=== PATIENT | male | born 1965 | race Caucasian/White ===

== ENCOUNTER 2016-03-07 21:19 | Emergency (ER) | payer OTHER ==
[~2016-03-07] VITALS: Ht 172.7 cm; Wt 96.5 kg
[2016-03-07 21:24] VITALS: BP 162/71; PULSE 144; RESP 24; O2SAT 99
[2016-03-07] MEDS ORDERED: 0.9% Sodium Chloride 1,000 ML IV ONE ×3 (21:37→23:45)
--- NOTE | 2016-03-07 21:37 | ED.REPORT ---
HPI-Altered Mental Status Date of Service Mar 07, 2016 ED Provider: Tracey Auguste MD 50 year old male with no significant past medical history presents to the ED due to difficulties with speech onset at 1758. Pt's boss states that he sent her a strange text message that was difficult to understand at 0558. She then talked to him on the phone where she noted he was talking funny. Today he also had a severe headache. Pt has no hx of headaches. Pt also reports sx of SOB, dry cough. One week ago he had URI symptoms. Pt denies fever, focal weakness, visual changes, numbness and any other symptoms. Nursing Notes Stated Complaint: MIGRAINE Chief Complaint: Neuro Symptoms/ Deficits Nursing Notes Reviewed: Yes Allergies: Coded Allergies: No Known Allergies (Unverified , 03/07/16) General Time Seen by MD: 21:30 Chief Complaint Not acting right Hx Obtained From: Patient Arrived By: Walk-in Sudden in Onset?: No Onset Occurred: 5 - 8 hours ago Symptom Duration: Since onset Progression since Onset: Gradually improving Location: : Head Quality: Aching Severity: Current: Mild Associated with: Reports: Headache, Denies: Vomiting Pertinent Negative: Relieved by nothing Similar Sx Previous: No Risk Factors TPA Administration/Criteria Stroke Thrombolytic Therapy : TPA Considered: Yes TPA Administered Intravenously: No, exclusion criteria (Onset of symptoms outside of Window. NIH 0) NIH Stroke Scale Level of Consciousness: Alert and responsive (0) Ask Month & Age: Both questions right (0) Open/Close Eyes/Hand Identification Technician: Performs both tasks (0) Horizontal EO Movements: None (0) Visual [place]: No visual loss (0) Facial Palsy: Normal symmetry (0) Right Arm Motor Drift (10s): No drift 10 sec (0) Left Arm Motor Drift (10s): No drift 10 sec (0) Right Leg Motor Drift (5s): No drift 5 sec (0) Left Leg Motor Drift (5s): No drift 5 sec (0) Limb Ataxia FNF/Heel-Nieto: No ataxia (0) Sensation (Arms/Legs/Face): No sensory loss (0) Language Aphasia: No aphasia, normal (0) Dysarthria: No dysarthria, normal (0) Extinction/Inattention: No exctinct/inattent (0) NIHSS Score: 0 Time NIHSS Performed: 21:35 Date NIHSS Performed: Mar 07, 2016 Past Medical History Past Medical History None reported Past Surgical History None reported Smoking History Unknown if Ever Smoker Social History Alcohol Use: Denies alcohol use Drug Use: Denies drug use Ambulatory Status Independent Review of Systems Constitutional: Denies: Chills, Fever Respiratory: Reports: Non-productive cough, Shortness of breath Cardiovascular: Denies: Chest pain GI: Denies: Nausea, Vomiting Skin: Denies Diaphoresis Neurologic: Reports: Headache, Unable to speak, Denies: Change LOC, Focal weakness, Numbness, Vision change Complete sys rev & neg: except as marked. Physical Exam Initial Vital Signs Vital Signs (First) Date Time Temp Pulse Resp B/P Pulse Ox O2 Delivery O2 Flow Rate FiO2 03/07/16 21:24 36.2 144 24 162/71 99 Room Air Initial VS: Reviewed, Vital signs abnormal ENT: Mucous membranes moist, Conjunctiva normal, No scleral icterus Abdomen / GI: Soft, Non-tender Extremities: Vascular intact, Neuro intact Skin: Warm, Dry, No cyanosis Psychiatric: Mood/affect normal, Behavior normal, Normal thought content General/Constitutional: Awake, Alert Head / Eyes: Atraumatic, Normocephalic, PERRL, EOMI, No scleral icterus Neck: Atraumatic, Supple, Full range of motion Respiratory / Chest: Breath sounds NL, Breath sounds = bilat, No respiratory distress, No rales, No rhonchi, No wheezing Cardiovascular: Heart rate NL, Regular rhythm, Heart sounds NL, Peripheral circulation NL Neurologic: Oriented X3, Speech NL, No motor deficits, No sensory deficits, CN II - XII intact, Cerebellar NL Having difficulty answering questions. Interpretation & Diagnostics Lab Results Interpretation Result Diagram: 03/07/16214203/07/162142 Test 03/07/16 21:43 03/07/16 22:49 03/07/16 23:54 White Blood Count 10.0th/mm3 (3.8-10.1) Red Blood Count 5.50mil/mm3 (4.40-5.80) Hemoglobin 15.3g/dL (13.8-17.2) Hematocrit 45.0% (41.0-50.0) Mean Corpuscular Volume 81.8fL (81-100) Mean Corpuscular Hemoglobin 27.8pg (27.0-35.0) Mean Corpuscular Hemoglobin Concent 34.0% (32.0-37.0) Red Cell Distribution Width 13.6% (12.3-15.4) Platelet Count 185bil/L (150-400) Neutrophils (%) (Auto) 77.1% (40-74) Lymphocytes (%) (Auto) 15.9% (14-46) Monocytes (%) (Auto) 5.8% (4-12) Eosinophils (%) (Auto) 0.2% (0-5) Basophils (%) (Auto) 0.4% (0-3) D-Dimer 0.7mg/L (<0.50) Sodium Level 135mEq/L (134-144) Potassium Level 3.3mEq/L (3.5-5.2) Chloride Level 97mEq/L (97-108) Carbon Dioxide Level 20mmol/L (18-29) Blood Urea Nitrogen 17mg/dL (6-24) Creatinine 0.92mg/dL (0.76-1.27) Estimat Glomerular Filtration Rate 93mL/min (>59) Glucose Level 232mg/dL (60-99) Calcium Level 9.1mg/dL (8.5-10.1) Magnesium Level 2.2mg/dL (1.6-2.6) Total Bilirubin 0.5mg/dL (0.0-1.2) Aspartate Amino Transf (AST/SGOT) 36U/L (0-50) Alanine Aminotransferase (ALT/SGPT) 80U/L (0-44) Alkaline Phosphatase 112U/L (25-150) Total Protein 8.0g/dL (6.4-8.4) Albumin 4.0g/dL (3.4-5.0) Thyroid Stimulating Hormone (TSH) 0.984uIU/mL (0.450-4.500) Urine Color Yellow (YELLOW) Urine Appearance Clear (CLEAR,HAZY) Urine pH 6.5 (5.0-8.0) Urine Specific [place] 1.010 (1.003-1.035) Urine Protein Negativemg/dL (NEG,TRACE) Urine Glucose (UA) 250mg/dL (NEGATIVE) Urine Ketones Tracemg/dL (NEGATIVE) Urine Occult Blood Negative (NEGATIVE) Urine Nitrite Negative (NEGATIVE) Urine Bilirubin Negative (NEGATIVE) Urine Urobilinogen Normalmg/dL (NORMAL) Urine Leukocyte Esterase Negative (NEGATIVE) Urine RBC 0-2/hpf (0-2) Urine WBC 0-5/hpf (0-5) Urine Epithelial Cells Occasional/hpf (NONE-MOD) Urine Crystals None seen (NONE SEEN) Urine Bacteria None/hpf (NONE-FEW) Urine Hyaline Casts None/lpf (NONE) Urine Granular Casts None seen (NONE SEEN) Urine Waxy Casts None seen (NONE SEEN) Urine Red Blood Cell Casts None seen (NONE SEEN) Urine White Blood Cell Casts None seen (NONE SEEN) Urine Mucus None seen (None Seen) Urine Trichomonas None seen (NONE SEEN) Urine Yeast None (NONE SEEN) Urine Culture Reflexed Not indicated Lactic Acid Level 1.3mmol/L (0.4-2.0) General Lab Results Interp 1: Labs reviewed ECG Interpretation ECG Interpretation: Tachycardic with a rate of 128. No acute ST or T wave changes. Time: 21:47 Interpreted by: ED physician Normal ECG Interpretation: Normal intervals X-Ray Chest Interpretation Chest Xray Interpretation: LLL infiltrate View: Portable, 1 view Interpretation / Wet Read by: Wet read ED physician CT Head Interpretation Conclusion: Bilateral maxillary sinus polyps/retention cysts. Otherwise normal CT head. CT Chest Interpretation Impression: No pulmonary emboli identified. No aorta dissection evident. Left lower lobe subsegmental atelectasis/scarring. Study type: CT pulm angiogram Interpretation / Wet Read by: Interpret - Radiologist Re-Eval/Medical Decision Med Decision/Clinical Course The patient presents with some confusion and difficulty giving history, he was quite tachycardic and he has somewhat of a strange affect. He was given IV fluids with improvement in his tachycardia. Upon arrival of his was able to get a more detailed history, the patient had had a few days of diarrhea and then the day before your did not sleep. According to the he is currently at his baseline. It is likely that his symptoms are combination of dehydration and fatigue from not sleeping. I did not find any source of infection that would require admission, he is not hypoxic, there is no pneumonia, has not had a pulmonary embolus, there is no sign of stroke or meningitis. The patient was noted to have a significant lactic acidosis however that resolved with fluids. Re-Evaluation/Progress : Time of Eval: 23:50 Re-Evaluation/Progress Note: Pt's is now in the room. She reports he had diarrhea for 2-3 days, then felt well yesterday. he stayed up all night and did not sleep all night. According to her, the patient is currently at baseline. Counseled Regarding: Diagnosis, Lab results Patient Discharge & Departure Impression: Primary Impression: Transient confusion Additional Impression: Dehydration Disposition: Home Discharge Condition All VS Reviewed: Yes Additional Instructions: It is very important you go home and sleep, continue to drink frequent fluids. Start with bland diet such as toast, rice, and applesauce. Your confusion is likely related to not sleeping. As far as her elevated heart rate of slightly a combination of dehydration and not sleeping. We did not find any dangerous cause of your symptoms. Follow-up with your physician for further evaluation and see care for any new or concerning symptoms such as fever or difficulty breathing. Scribe Attestation Portions of this note were transcribed by Alma Bach. I, (Dr. Auguste) personally performed the history, physical exam and medical decision-making; I reviewed and confirmed the accuracy of the information in the transcribed note. Signed by: Alma Bach. 03/07/2016, 2316 Tracey Auguste MD Mar 07, 2016 21:37 Alma Bach Mar 07, 2016 22:23
[2016-03-07 21:53] LABS: BASOPHILS % (AUTO) 0.4 % (0-3); EOSINOPHILS % (AUTO) 0.2 % (0-5); MONOCYTES % (AUTO) 5.8 % (4-12); Mean Corpuscular Hemoglobin 27.8 pg (27.0-35.0); Mean Corpuscular Volume 81.8 fL (81-100); NEUTROPHILS % (AUTO) 77.1 % (40-74); Platelet Count 185 bil/L (150-400)
[2016-03-07 22:15] VITALS: PULSE 121; RESP 25; O2SAT 99
[2016-03-07 22:23] LABS: Magnesium 2.2 mg/dL (1.6-2.6)
[2016-03-07 22:57] VITALS: BP 134/70; PULSE 112; RESP 21; O2SAT 97
[2016-03-07 23:40] LABS: COLOR,URINE YELLOW (YELLOW)
[2016-03-07 23:41] LABS: APPEARANCE,URINE CLEAR (CLEAR,HAZY); OCCULT BLOOD,URINE NEGATIVE (NEGATIVE); PH,URINE 6.5 (5.0-8.0); UROBILINOGEN,URINE NORMAL (NORMAL)
[2016-03-07] MEDS ORDERED: Potassium Chloride 20 mEq SR Tablet PO ONE (23:45)
[2016-03-08 01:08] VITALS: BP 144/93; PULSE 104; RESP 26; O2SAT 97
--- NOTE | 2016-03-08 08:32 | DRSVH ---
PROCEDURE: X-RAY CHEST ONE VIEW, PORTABLE ([id number]) INDICATIONS: cough TECHNIQUE: One view of the chest was acquired. COMPARISON: None. FINDINGS: Surgical changes and devices: None. Lungs and pleura: No pleural effusions or pneumothorax. Mild patchy opacity at the left lung base. Mediastinum: Mediastinal contours appear normal. Heart size is normal. Bones and chest wall: No suspicious bony lesions. Overlying soft tissues appear unremarkable. IMPRESSION: Left lung base pneumonia. Continued plain film surveillance is recommended to ensure reso lution, and to exclude underlying or central malignancy. Dictated by: Michelle Yadav M.D. on 03/08/2016 at 8:30 Approved by: Michelle Yadav M.D. on 03/08/2016 at 8:30
--- NOTE | 2016-03-08 08:32 | DRSVH ---
PROCEDURE: CT ANGIO CHEST PULMONARY EMBOLISM ([id number]) INDICATIONS: dyspnea and tachycardia TECHNIQUE: After the administration of intravenous contrast, 2 mm thick sections acquired from the pulmonary api ac to the posterior costophrenic angles. 3-dimensional maximum intensity projection (MIP) coronal a nd sagittal reformats were then acquired through the thorax. For radiation dose reduction, the follo wing was used: automated exposure control, adjustment of mA and/or kV according to patient size. COMPARISON: [facility], CR, XR CHEST 1VW (PORTABLE), 03/07/2016, 22:05. FINDINGS: Image quality: Opacification is suboptimal distal to the main pulmonary arteries. Pulmonary arteries: Pulmonary arteries are normal in size, and demonstrate no intraluminal filling d efects to suggest central pulmonary embolism. Lungs and pleura: Left lower lobe linear and patchy opacity. No priors are available for comparisio n. No pleural effusions or pneumothorax. Central and peripheral airways are patent. Mediastinum: Heart size is normal, without pericardial effusion. No mediastinal or hilar adenopathy . Thoracic aorta is normal in caliber and enhancement. Esophagus is normal in caliber, with mild hi atal hernia. Bones and chest wall: No suspicious bony lesions. Ribs and thoracic spine appear intact throughout. Thyroid gland is unremarkable. No axillary or supraclavicular adenopathy. Abdomen: Visualized upper abdominal solid organs appear normal in the early arterial phase of enhanc ement. IMPRESSION: 1. No pulmonary embolism. It is noted that opacification is suboptimal distal to the main pulmonary branches. Areas of embolism in these branches cannot be definitively excluded. 2. Left lower lobe opacities are above. This could represent scarring and/or atelectasis. However, no priors are available for comparison. Followup CT in 3-6 months is recommended to document stabil ity and/or resolution. Dictated by: Sisi Verma M.D. on 03/08/2016 at 8:31 Approved by: Sisi Verma M.D. on 03/08/2016 at 8:31
--- NOTE | 2016-03-08 09:25 | DRSVH ---
PROCEDURE: CT BRAIN WITHOUT CONTRAST ([id number]) INDICATIONS: confusion TECHNIQUE: Noncontrast 4.5 mm thick angled axial sections acquired from the foramen magnum to the vertex, with c oronal reformats. COMPARISON: None. FINDINGS: Image quality: Excellent. CSF spaces: Basal cisterns are patent. No extra-axial fluid collections. Ventricles are normal in size and shape. Brain: No intracranial hemorrhage, mass, or mass effect. [place]-white matter interface is preserved. Skull and face: Calvarium and visualized facial bones are intact, without suspicious lesions. Sinuses: Visualized sinuses demonstrate bilateral prominent sinus retention cysts or mucosal polyps in the maxillary sinuses. The remaining paranasal sinuses and mastoid air cells are clear. IMPRESSION: 1. No acute intracranial abnormality. 2. Prominent sinus retention cysts or mucosal polyps in the maxillary sinuses bilaterally. Dictated by: Arcadio Headley M.D. on 03/08/2016 at 9:23 Approved by: Arcadio Headley M.D. on 03/08/2016 at 9:23
== END 2016-03-08 01:09 | disposition home or self-care (01) ==
LOC: SED 21:19
DX: R41.0 Disorientation, unspecified (principal); E86.0 Dehydration
CPT/HCPCS: 36415; 70450; 71010; 71275; 80053; 81000; 81002; 82948; 83605; 83735; 84443; 85025; 85379; 87040; 87804; 93005; 96361; 96374; 99285; J2060; J7030; Q9967

== ENCOUNTER 2016-03-15 12:18 | Emergency (ER) | payer OTHER ==
[~2016-03-15] VITALS: Ht 172.7 cm; Wt 109.1 kg
[2016-03-15 12:22] VITALS: BP 170/94; PULSE 125; RESP 22; O2SAT 100
[2016-03-15 13:25] LABS: BASOPHILS % (AUTO) 0.4 % (0-3); EOSINOPHILS % (AUTO) 0 % (0-5); MONOCYTES % (AUTO) 7.3 % (4-12); Mean Corpuscular Hemoglobin 27.7 pg (27.0-35.0); Mean Corpuscular Volume 82.1 fL (81-100); NEUTROPHILS % (AUTO) 79.3 % (40-74); Platelet Count 217 bil/L (150-400)
[2016-03-15 13:36] LABS: Magnesium 2.3 mg/dL (1.6-2.6)
[2016-03-15] MEDS ORDERED: 0.9% Sodium Chloride 1,000 ML IV ONE (16:50)
[2016-03-15 16:57] VITALS: BP 146/89; PULSE 94; RESP 18; O2SAT 98
[2016-03-15 17:03] LABS: TROPONIN T < 0.010 ug/L (0.0-0.011)
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
[2016-03-15 18:23] VITALS: BP 147/92; PULSE 93; RESP 18; O2SAT 98
[2016-03-15 18:44] LABS: APPEARANCE,URINE CLEAR (CLEAR,HAZY); COLOR,URINE STRAW (YELLOW); OCCULT BLOOD,URINE TRACE (NEGATIVE); PH,URINE 6.5 (5.0-8.0); UROBILINOGEN,URINE NORMAL (NORMAL)
[2016-03-15] MEDS ORDERED: TEMA7.5C14 PO (19:18)
[2016-03-15 19:38] VITALS: BP 149/84; PULSE 98; RESP 21; O2SAT 98
== END 2016-03-15 19:39 | disposition home or self-care (01) ==
LOC: SED 12:18
DX: F41.9 Anxiety disorder, unspecified (principal); E86.0 Dehydration
CPT/HCPCS: 36415; 80053; 81000; 83735; 84443; 84484; 85025; 85379; 90791; 93005; 96360; 99285; J7030